=== PATIENT | female | born 1960 | race Two or more races ===

== ENCOUNTER 2024-10-23 06:40 | Day surgery (SDC) | payer OTHER, SELFPAY ==
--- NOTE | 2024-10-22 07:00 | EKG_ITS ---
[facility] Test Date: 2024-10-22 Pat Name: SASHA MONTOYA Department: Room: - Gender: Female Staff Nurse Midwife: MERARI : 1960 Requested By: Guerrero Amaral Order Number: [id number] Reading MD: Guerrero Amaral Measurements Intervals [place] Rate: 69 P: 78 HI: 201 QRS: 78 QRSD: 111 T: 53 QT: 429 QTc: 463 Interpretive Statements SINUS RHYTHM MODERATE INTRAVENTRICULAR CONDUCTION DELAY NONSPECIFIC T-WAVE ABNORMALITY Compared to ECG 08/19/2023 07:45:27 Intraventricular conduction delay now present T-wave abnormality still present /store/S0/[id number]/ecg/[id number].pdf
[2024-10-22 08:14] VITALS: BMI 41.6
[2024-10-22 09:07] LABS: Alanine Aminotransferase 12 U/L (10-49); Albumin, Serum 4.3 gm/dL (3.4-4.8); Albumin/Globulin Ratio 1.7 (1.2-2.2); Alkaline Phosphatase 81 U/L (46-116); Anion Gap 4 (7-16); Aspartate Amino Transferase 18 U/L (0-34); BUN/Creatinine Ratio 10 Ratio (12-20); Bilirubin,Total 0.4 mg/dL (0.3-1.2); Blood Urea Nitrogen 7 mg/dL (9-23); Calcium 9.3 mg/dL (8.3-10.6); Calcium (Corrected) 9.3 mg/dL (8.5-10.1); Carbon Dioxide 33.9 mMol/L (20.0-31.0); Chloride 100 mMol/L (98-107); Creatinine (Component) 0.7 mg/dL (0.6-1.3); Estimated Creatinine Clearance 95.1 mL/min (>60); Globulin 2.5 gm/dL (2.3-3.5); Glucose 95 mg/dL (74-106); Osmolality,Calculated 273 (275-295); Sodium 138 mMol/L (136-145); Total Protein 6.8 gm/dL (5.7-8.2); eGFR > 60 See Note
--- NOTE | 2024-10-22 16:06 | SUR.PREOP ---
Pt notified to come in at 0700 tomorrow for surgery
--- NOTE | 2024-10-22 16:07 | SUR.PREOP ---
cardiac history reviewed with Dr Arriola.
[2024-10-23] VITALS (11 sets, daily range): BP systolic 109–157; BP diastolic 67–89; PULSE 73–86; RESP 14–20; TEMP 36.4–36.8; O2SAT 95–100; BMI 41.3
[2024-10-23] MEDS: RINGERS LACTATED 1000 ML 1,000 ML 20 ML IV (07:38)
[2024-10-23] MEDS: OXYMETAZOLINE NAS SPRY 0.05% 15 ML BTL 3 SPRAY NASAL (07:50)
--- NOTE | 2024-10-23 10:00 | PD.SUROPNT ---
Date of Procedure 10/23/24 Pre Op Diagnosis Nasal septal deviation with obstruction Bilateral inferior turbinate hypertrophy Post Op Diagnosis Nasal septal deviation with obstruction Bilateral inferior turbinate hypertrophy Procedure Intranasal septoplasty Bilateral submucous resection of inferior turbinates Findings Severely deviated nasal septum to the right side with spurring along the floor and enlarged inferior turbinate Procedure Description This is a 63-year-old female with chronic nasal congestion despite medical therapy with the above findings. Treatment options were discussed as well as surgical risks including bleeding infection and nasal deformity. Also discussed potential need for further surgery. She understood this as well as anticipated outcomes and wished to proceed. Patient was transferred to the operative suite where she was anesthetized and intubated and sterilely draped. Timeout was performed. Nasal septum as well as the inferior turbinates are injected with 1% lidocaine with 1 100,000 dilution epinephrine. Approximately 9 cc total were used. A caudal rim incision was made on the left side of the septum and mucosal flap elevated off the septal cartilage and bone. Perpendicular plate was from the quadrangular cartilage and was incised with double-action scissors and the bony fragments removed with Jonny forceps. The cartilage was swinging to the right side so it was disarticulated from the vomer underneath. Large spur was present there as well was going off to the right side. This was removed with a 4 mm osteotome and Jonny forceps. The cartilage was then reapproximated to the underlying periosteum with interrupted 4-0 Vicryl sutures. The inferior turbinates were then reduced in a submucosal plane with a 2.9 mm turbinate shaver blade. Dissection was performed on insertion and withdrawal first on the left and then the right side. Entry sites were then cauterized with suction cautery. Caudal rim incision was closed with a 4-0 plain gut suture. Peterson splints were then trimmed and coated with double antibiotic ointment and inserted and sutured in place with 3-0 silk suture on a Amos needle. Patient was awakened and taken to the recovery room in stable condition Anesthesia GETA Pathology / specimen None Estimated Blood Loss 10 Surgeon Guerrero Barron DO Surgical Staff Operation Date: 10/23/24 09:00 Case Staff Anesthesiologist: Oz Souza
--- NOTE | 2024-10-23 10:09 | SUR.PHASEI ---
1009 Patient arrived to recovery resting comfortably in [facility], drowsy and able to arosue with verbal prompting, on oxygen 9L via oxy mask, breathing unlabored, vital signs stable, denies pain, dressing intact below nose- nasal bridal (gauze and paper tape) with scant amount of blood noted, lung sounds clear upon auscultation, bilateral radial pulses present when palpated, report received from Yasmany FONTAINE and Dr. Souza
--- NOTE | 2024-10-23 11:00 | SUR.PHASEII ---
1100 patient drinking water tolerating well
--- NOTE | 2024-10-23 11:54 | SUR.PHASEII ---
1154 Patient meets discharge criteria from recovery, awake and alert, breathing unlabored, vital signs stable, denies pain, dressing intact; wet but stationary, patient and her son educated on post op bleeding and when to seek medical attention both receptive, patient ate two jello's and drinking water; tolerating well, denies nausea, patient assisted with dressing into her clothing by this contract technical writer, patient signed limited proficiency statement for patient son to pharmaceutical service representative english to her, discharge instructions given to patient and patients son, son signed discharge instructions. Patient given all her belongings prior to discharge, transported via wheelchair and left in a private vehicle.
== END 2024-10-23 11:54 | disposition home or self-care (01) ==
PROVIDERS: PCP Family Medicine; Referring Provider Otolaryngology; Visit Provider Otolaryngology
PROC: (CPT 30520; principal; 2024-10-23 08:45)
DX: J34.3 Hypertrophy of nasal turbinates (principal); J34.2 Deviated nasal septum; Z01.810 Encounter for preprocedural cardiovascular examination
CPT/HCPCS: 30130; 30520; 36415; 80053; 84443; 93005; A4217; A4649; J0690; J1100; J1885; J2250; J2405; J2704; J3010; J3490; J7040; J7120; A9270

== ENCOUNTER → 2025-02-10 | Outpatient (CLI) | payer OTHER, MEDICAID, SELFPAY ==
--- NOTE | 2025-02-10 13:14 | XR_ITS ---
Examination: Thoracic spine 3 views Technique one AP lateral coned lateral upper spine 3 views Exam date and time: February 10, 2025 1330 hours INDICATIONS: Upper back pain beginning 2 weeks ago. FINDINGS: Adequate alignment thoracic vertebral bodies No thoracic fracture Mild diffuse thoracic degenerative disc disease IMPRESSION: Mild diffuse thoracic degenerative disc disease
== END | disposition home or self-care (01) ==
PROVIDERS: PCP Nurse Practitioner; Referring Provider Nurse Practitioner; Visit Provider Nurse Practitioner
DX: M51.34 Other intervertebral disc degeneration, thoracic region (principal)
CPT/HCPCS: 72070

== ENCOUNTER → 2025-05-11 | Outpatient (CLI) | payer OTHER, MEDICAID, SELFPAY ==
--- NOTE | 2025-05-11 16:01 | XR_ITS ---
Examination: Lumbar spine, 5 views Technique: Lumbar spine AP, lateral, coned lateral lower lumbar spine, bilateral obliques 5 views Exam date and time: May 11, 2025, 1614 hours INDICATIONS: Low back pain radiating down the right hip beginning 2 weeks ago. FINDINGS: Moderate osteopenia. No acute lumbar fracture Mild chronic osteoporotic compressions upper lumbar and lower dorsal vertebral bodies Mild disc narrowing posteriorly L5-S1 IMPRESSION: No acute lumbar fracture Mild disc narrowing posteriorly L5-S1
--- NOTE | 2025-05-11 16:01 | XR_ITS ---
Examination:Right hip AP, lateral, AP pelvis 3 views Technique: Hip AP lateral, AP pelvis, 3 views Exam date and time:May 11, 2025 1614 hours INDICATIONS: Right hip pain beginning 2 weeks ago. FINDINGS: Moderate osteopenia No right hip fracture or dislocation Moderate narrowing hip joints The left hip bones of the pelvis intact IMPRESSION: Moderate narrowing hip joints.
== END | disposition home or self-care (01) ==
LOC: CDIM 15:41
PROVIDERS: Referring Provider Nurse Practitioner; Visit Provider Nurse Practitioner
DX: M54.41 Lumbago with sciatica, right side (principal); M85.88 Other specified disorders of bone density and structure, other site
CPT/HCPCS: 72110; 73502

== ENCOUNTER → 2025-08-11 | Outpatient (CLI) | payer OTHER, MEDICAID, SELFPAY ==
--- NOTE | 2025-08-11 11:45 | XR_ITS ---
Examination: Screening digital mammography, bilateral Computer aided detection 3-D breast Tomosynthesis, bilateral Date and time of exam: August 11, 2025, 11:16 AM, compared to mammograms dating to December 28, 2019 Indication: Screening, patient states bilateral breast pain years Technique: Nonmagnified MLO, CC views of the breasts to been obtained, reconstructed from 3-D Tomosynthesis images. R2 computer aided detection program utilized for evaluation of suspicious masses and/or abnormal calcifications. 3-D Tomosynthesis images obtained. Findings: Scattered areas of fibroglandular density. Stable nodule outer right breast No interval suspicious masses Impression: BI-RADS category II: Benign Findings. Recommend 1 year follow-up mammogram. Given the patient's history of bilateral breast pain, recommend baseline bilateral breast sonography follow-up
== END | disposition home or self-care (01) ==
LOC: CDIM 11:03
PROVIDERS: PCP Family Medicine; Referring Provider Nurse Practitioner; Visit Provider Nurse Practitioner
DX: Z12.31 Encounter for screening mammogram for malignant neoplasm of breast (principal); R92.323 Mammographic fibroglandular density, bilateral breasts
CPT/HCPCS: 77063; 77067

== ENCOUNTER 2025-08-16 10:22 | Outpatient (RCR) | payer OTHER, MEDICAID, SELFPAY ==
--- NOTE | 2025-08-16 10:52 | PT.OIERPT ---
PT OP Initial Eval Patient Information Outpatient Physical Therapy Treatment Date: 08/16/25 Visit Reasons: Back pain Medical Diagnosis: M51.362 Treatment Dx #1: LBP Start of Care: 08/16/25 Date of Onset: 2 months ago Smoking Status Smoking Status: Never smoker Initial Assessment Subjective: Pt is 64 yr old turkish speaking female who reports LBP since many years ago but worsened over the past 2 months. Increased pain with standing/sitting >15 mins which limits HH chores such as mopping, sweeping and food prep. She hasn't worked since 2010. PLOF: pt was independent with ADL's and HH chores not limited by LBP PMH: HTN, DM, allergies Imaging: Xray of L/s Pt goal: Mild disc narrowing posteriorly L5-S1 Objective: Trunk ArOM: ? B SB 50% of normal with pain to the L side ? Extension: 20% with pain around L4-5, L5-S1 ? Flexion: 10 from floor with LBP ? B rotation: 60% with pain ? TTP: moderate paraspinals L5-S1 worse on R side ? Neuro: B SLR: +LBP, no LE pain Assessment: ? Pt presents with trunk flexion sensitivity and overlying myofascial pain ? and TTP around L5-S1 consistent with lower lumbar DDD. Pt requires skilled therapy in order to decrease ? pain and improve sitting/standing tolerance and has fair rehab potential. Eval ?followed by HEP printout. Short Term and [facility] Goals 1. Ind with HEP ? 2. Improved sitting/standing tolerance to 30 minutes with <=4/10 LBP ? 3. Decreased lower paraspinal TTP from mod to min 4. Improved HH chore tolerance to at least 30 minutes with <=3/10 LBP and no ?increase in LE ssx ? Treatment Plan 1. Manual therapy ? 2. Therex ? 3. Modalities as indicated, moist heat, ice, estim, mechanical traction Frequency and Duration: 2x a week for 12 sessions plus the evaluation Certification Dates: 08/16/25 to 11/13/25 Procedure Charges OP PT Eval Mod Complex 30 minutes: Yes
== END 2025-08-17 23:59 | disposition home or self-care (01) ==
LOC: CPTX 10:22
PROVIDERS: PCP Nurse Practitioner; Referring Provider Nurse Practitioner; Visit Provider Nurse Practitioner
DX: M51.362 Other intervertebral disc degeneration, lumbar region with discogenic back pain and lower extremity pain (principal); I10 Essential (primary) hypertension; E11.9 Type 2 diabetes mellitus without complications
CPT/HCPCS: 97162

== ENCOUNTER 2025-09-08 10:30 | Outpatient (RCR) | payer OTHER, MEDICAID, SELFPAY ==
--- NOTE | 2025-09-01 13:54 | PT.ODAYNRPT ---
PT Outpatient Daily Note OP Daily Note Outpatient Physical Therapy Treatment Date: 09/01/25 Visit Reasons: Back pain Subjective: Same as time of evaluation Objective: See F/S for therex MT: [facility] L/S x7' Assessment: Difficulty with prone positioning with increased LBP Plan: Continue per POC Length of Time (minutes) of Treatment: 30 Minutes Procedure Charges Therapeutic Exercise 30 minutes: Yes
--- NOTE | 2025-09-08 11:47 | PT.ODAYNRPT ---
PT Outpatient Daily Note OP Daily Note Outpatient Physical Therapy Treatment Date: 09/08/25 Visit Reasons: Back pain Subjective: No new complaints. Objective: Please see flow sheet for ther ex list. Assessment: Pt able to replicate HEP exercises with good technique indicating compliance. Plan: Continue with pOC. Length of Time (minutes) of Treatment: 30 Minutes SUPERINTENDENT PIER Service Modifier Method I: Divide the number of min of care provided by the SUPERINTENDENT PIER/REGULATORY ASSOCIATE by the total min of care provided then multiply by 100. If greater than 11 percent modifier is required. Method II: Divide the total time of care provided to patient by 10 (round to the nearest whole number) and add 1 min. to set the minimum time requirement. If treatment total was 60 min., then 10% of 6 min PT CQ modifier applied: CQ Modifier applied Procedure Charges Therapeutic Exercise 30 minutes: Yes
== END 2025-09-17 23:59 | disposition home or self-care (01) ==
LOC: CPTX 10:30
PROVIDERS: PCP Nurse Practitioner; Referring Provider Nurse Practitioner; Visit Provider Nurse Practitioner
DX: M51.362 Other intervertebral disc degeneration, lumbar region with discogenic back pain and lower extremity pain (principal); I10 Essential (primary) hypertension; E11.9 Type 2 diabetes mellitus without complications
CPT/HCPCS: 97110

== ENCOUNTER 2025-09-30 09:30 | Outpatient (RCR) | payer OTHER, MEDICAID, SELFPAY ==
--- NOTE | 2025-09-23 10:43 | PTNOTE_ITS ---
PT Outpatient Daily Note OP Daily Note Outpatient Physical Therapy Treatment Date: 09/23/25 Visit Reasons: BACK PAIN Subjective: Pt reports she has been ill, did not perform HEP so back is pain and stiff. Objective: Please see flow sheet for the huey list. Assessment: Pt demonstrates poor tolerance with laying supine, interventions given alternating position to maximize participation. Plan: Continue with pOC. Length of Time (minutes) of Treatment: 30 Minutes MEXICAN FOOD MACHINE TENDER Service Modifier Method I: Divide the number of min of care provided by the MEXICAN FOOD MACHINE TENDER/STUDY HALL SUPERVISOR by the total min of care provided then multiply by 100. If greater than 11 percent modifier is required. Method II: Divide the total time of care provided to patient by 10 (round to the nearest whole number) and add 1 min. to set the minimum time requirement. If sarah atment total was 60 min., then 10% of 6 min PT CQ modifier applied: CQ Modifier applied Procedure Charges Therapeutic Exercise 30 minutes: Yes
--- NOTE | 2025-09-30 09:44 | PT.ODAYNRPT ---
PT Outpatient Daily Note OP Daily Note Outpatient Physical Therapy Treatment Date: 09/30/25 Visit Reasons: BACK PAIN Plan: Length of Time (minutes) of Treatment: 30 Minutes Procedure Charges Therapeutic Exercise 30 minutes: Yes
--- NOTE | 2025-09-30 10:08 | PT.ODS1RPT ---
PT OP Progress/Discharge Note Date of Service: 09/30/25 Progress Note/DC Note Progress Note/Discharge Note: DC Note Patient Information Visit Reasons: BACK PAIN Service Continue Service or Discharge: Discharge Discharge Date: 09/30/25 Status Subjective: Continued LBP unchanged since starting therapy. Pt reports relief after chiropractic visits. Objective: Objective findings are the same as time of evaluation P x7' L/S Assessment: Pt has attended the evaluation and 4 Rx sessions with limited progress with goals. Pt hasn't met goals due to continued LBP and is not progressing. Pt has difficulty with prone and supine positioning with increased LBP. Plan: D/C Procedure Charges Therapeutic Exercise 30 minutes: Yes
== END 2025-10-17 23:59 | disposition home or self-care (01) ==
LOC: CPTX 09:30
PROVIDERS: PCP Nurse Practitioner; Referring Provider Nurse Practitioner; Visit Provider Nurse Practitioner
DX: M51.362 Other intervertebral disc degeneration, lumbar region with discogenic back pain and lower extremity pain (principal); I10 Essential (primary) hypertension; E11.9 Type 2 diabetes mellitus without complications
CPT/HCPCS: 97110

== ENCOUNTER → 2025-10-08 | Outpatient (CLI) | payer OTHER, MEDICAID, SELFPAY ==
--- NOTE | 2025-10-08 12:45 | XR_ITS ---
Examination: MRI lumbar spine without contrast Date and time of exam: October 08, 2025, 1337 hours, comparison April 25, 2015 INDICATIONS: Low back pain 24 years with numbness and weakness in the legs Technique: Multiple MRI axial and sagittal sections lumbar spine. Sagittal T2-weighted images, TR 3500, TE 118 T1 weighted transverse sections, TR 688 T8.5, T2-weighted sagittal sections T1 weighted sagittal sections TR 621, TE 30 T2 axial sections, TR 4, 190, TE 84. Findings: Adequate alignment lumbar vertebral bodies No lumbar fracture No spondylolisthesis Normal marrow signal lumbar vertebral bodies L5-S1 no disc protrusion L4-L5 no disc protrusion L3-L4 no disc protrusion L2-L3 no disc protrusion L1-L2 no disc protrusion IMPRESSION: Adequate alignment lumbar vertebral bodies No lumbar fracture No acquired spinal stenosis
== END | disposition home or self-care (01) ==
LOC: SMRI 12:38
PROVIDERS: PCP Nurse Practitioner; Referring Provider Nurse Practitioner; Visit Provider Nurse Practitioner
DX: M47.27 Other spondylosis with radiculopathy, lumbosacral region (principal); M51.362 Other intervertebral disc degeneration, lumbar region with discogenic back pain and lower extremity pain; M47.816 Spondylosis without myelopathy or radiculopathy, lumbar region; R20.0 Anesthesia of skin
CPT/HCPCS: 72148

== ENCOUNTER → 2025-11-15 | Outpatient (CLI) | payer OTHER, MEDICAID, SELFPAY ==
--- NOTE | 2025-11-15 14:30 | XR_ITS ---
Examination: Breast ultrasound complete, bilateral Date and time of exam: November 15, 2025, 1436 hours INDICATIONS: Bilateral breast pain beginning 6 weeks ago Technique: Real-time grayscale ultrasonographic imaging bilateral breasts, including all 4 quadrants as well as nipple retroareolar and axillary regions. Findings: Sonographic images right and left breast demonstrate no cystic or solid masses IMPRESSION: BI-RADS Category 1: Negative study
== END | disposition home or self-care (01) ==
PROVIDERS: PCP Nurse Practitioner; Referring Provider Nurse Practitioner; Visit Provider Nurse Practitioner
DX: R92.313 Mammographic fatty tissue density, bilateral breasts (principal)
CPT/HCPCS: 76641